=== PATIENT | female | born 1960 | race Caucasian/White ===

== ENCOUNTER → 2018-11-10 | Outpatient (CLI) | payer OTHER ==
[~2018-11-10] VITALS: Ht 162.6 cm; Wt 81.6 kg
[~2018-11-10] MED LIST: CYCLOBENZAPRINE5 MG PO; GABAPENTIN 100100 MG PO
[2018-11-10 09:45] VITALS: BP 111/76
--- NOTE | 2018-11-10 10:03 | NUR ---
Pain Clinic Assessment: 1. History of Osteoarthritis: DENIES History of Rheumatoid Arthritis: DENIES 2. Height: 5 ft. 4 in. 162.6 cm. Weight: 180.0 lb. oz. 81.648 kg. Patient's BMI: 30.9 3. Vital Signs: BP: 111/76 Pulse: 75 Resp: 16 Temp: 02 Sat: 98 ECG Mon: 4. Pain Intensity: 8 5. Fall Risk: Dizziness: N Needs help standing or walking: N Fallen in the last 3 months: N Fall risk comments: 6. Patient on Blood Thinner: None 7. History of Hypertension: N 8. Opioid Therapy greater than 6 weeks: N Opiate Contract Signed: 9. Risk Assessment Tool Provided: 10. Functional Assessment Tool: 11. Recreational Drug Use: Never Drug Type: Tobacco Use: Current Every Day Smoker Tobacco Type: Cigarettes Amount or Packs/day: 0.5 How Many Years: 14 Alcohol Use: Yes Frequency: Weekly Quant: 2-3 A WEEK
--- NOTE | 2018-11-16 13:03 | HPC ---
[facility] [place] [address] PAIN MANAGEMENT CONSULTATION Name: BRANT BYRNES Room #: REG Malik MSuhail.#: [id number] Admission: 11/10/18 ������������������ Attend Phys: Bryce Beltran DO Discharge: ������������������ Date of : 64 Report #: [id number] THIS REPORT FOR: //name// CC: FAM physician/PCP Bryce Grey NP DATE OF SERVICE: 11/10/2018 REFERRING PHYSICIAN: Nurse oYandy Dior CHIEF COMPLAINT: Low back pain and bilateral lower extremity pain with paresthesias. HISTORY OF PRESENT ILLNESS: As you know, the patient is a 58-year-old female with long-standing history of low back pain, upper buttock and posterolateral thigh pain that began in 2018. The patient denies specific injury or trauma that may have led to symptom development. She states that her job tends to exacerbate symptoms as she is doing lifting and twisting throughout her daily activities. She has trialed conservative treatment options with [id number] medications, stretching and relaxation techniques, all of which unfortunately have been ineffective at improving the symptoms. She sought evaluation at her local physician's office, seeing nurse practitioner Garima Grey, who then referred the patient for MRI of the lumbar spine for further evaluation. The patient underwent MRI of the lumbar spine on 11/05/2018 and was then referred to our clinic to discuss potential treatment options as there were minimal findings in the imaging study. The patient indicates today pain is continuous and constant, describes pain as cramping, aching and throbbing; places current pain score at 8/10, daily average of 6-7/10, worst the pain has been is 10+/10. The patient states that pain is exacerbated with working for long periods of time, getting up out of a chair and sitting for any length of time; improves with sleep. She has been referred to our service to discuss options for treatment for what appears to be a combination of facet arthropathy and myofascial pain. There does appear to be a history of radicular component, with radiation down the legs bilaterally, correlating to the L5-S1 level. She has been referred to our service to discuss treatment options for ongoing pain issues. PAST MEDICAL HISTORY: Gallbladder disease. PAST SURGICAL HISTORY: Cholecystectomy. SOCIAL HISTORY: The patient continues to smoke, reporting less than a half pack tobacco per day, has done so since age 16. She admits to one alcoholic beverage per day. She is employed as a production line mechanic. [place], [place] [id number] PAIN MANAGEMENT CONSULTATION Name: BRANT BYRNES Room #: REG CLMalik Isi.#: [id number] Admission: 11/10/18 ������������������ Attend Phys: Bryce Beltran DO Discharge: ������������������ Date of : 64 Report #: [id number] workmen's compensation nor is she trying to obtain disability benefits. She is not in litigation in regards to pain. She is accompanied by her significant other present in the room today. REVIEW OF SYSTEMS: Positive for frequent fatigue and weakness, frequent and recurrent headaches, blurred and double vision, changes in bowel movements, frequent diarrhea, nocturia, incontinence or dribbling to urine, varicose veins, numbness and tingling sensations, nervousness or depression. All other review of systems negative per 12-point review of systems, other than those listed in the history of present illness. Pain impact score 41/60, indicating severe interference with daily activities secondary to pain. ALLERGIES: MORPHINE AND MARIJUANA. CURRENT MEDICATIONS: Cyclobenzaprine 5 mg 3 times a day and gabapentin 100 mg 3 times a day. IMAGING DATA: MRI of the lumbar spine obtained 11/05/2018 shows at T12-L1 minimal broad-based disk bulge, typical finding for age-related patient. There is mild right and mild left facet arthropathy. No significant central canal or neural foraminal stenosis. L1-L2, small right paracentral disk bulge, slight impression upon the right ventral thecal sac. No significant central canal or neural foraminal stenosis. There are noted arthritic changes at this level. L2-L3, minimal disk bulge, mild facet and ligamentum flavum changes. No significant central canal or neural foraminal stenosis. L3-L4, small broad-based disk bulge, slightly impinging upon the ventral thecal sac. There are some arthritic changes noted. There are no significant central canal or neural foraminal stenosis. L4-L5, small broad-based disk bulge; mild ligamentum flavum hypertrophy; mild arthritic changes; mild relative narrowing of the thecal sac to 10.5 mm, down from 12 mm and mild inferior foraminal tapering bilaterally. L5-S1, severe degenerative changes; prominent ligamentum flavum hypertrophy, right greater than left; moderate bilateral neural foraminal narrowing secondary to spondylolisthesis and advanced facet arthropathy changes. No significant central canal stenosis. PHYSICAL EXAMINATION: VITAL SIGNS: Blood pressure 111/76, pulse 75 and respiratory rate 16 and unlabored. The patient is 98% on room air. Height 5 feet 4 inches tall, weight 180 pounds, BMI calculated 30.9. GENERAL: Well-developed, well-nourished and well-hydrated 58-year-old female, appears older than stated age. She smells strongly of tobacco smoke, placing current pain score at 8/10. HEENT: Normocephalic, atraumatic. Pupils equal, round and reactive to light. Extraocular muscles are intact. Sclerae nonicteric, without injection. [facility] [address] [place] [address] PAIN MANAGEMENT CONSULTATION Name: BRANT BYRNES Room #: REG ALMA Snowden.#: [id number] Admission: 11/10/18 ������������������ Attend Phys: Bryce Beltran DO Discharge: ������������������ Date of : 64 Report #: [id number] NEUROLOGIC: Cranial nerves 2-12 grossly intact. Speech is fluent. The patient deemed a fair historian. LUNGS: Appear clear. No wheezes, rhonchi or rales. CARDIOVASCULAR: Regular. No appreciable gallop or rub. ABDOMEN: Soft, obese. Normoactive bowel sounds. EXTREMITIES: Show no clubbing, no cyanosis and no edema. MUSCULOSKELETAL: Lower extremity strength equal and symmetrical, 5/5. She is intact to light touch from L1 through S2 dermatomes. Seated straight leg raising negative. Supine straight leg raising is equivocal. Lumbar provocation testing is met with increasing pain with axial distribution. There is tenderness to palpation over the paraspinal musculature of the lower lumbar spine. No spinous process tenderness. Modified Gaenslen's is positive for axial back pain. Poncho's test is negative. Ankle clonus negative. Babinski is negative. Gait appears normal. The patient does have a slightly forward flexed lumbar spine, with loss of lordotic curvature. ASSESSMENT: 1. History of lumbar radiculopathy. 2. Mild displacement of lumbar intervertebral disks. 3. Facet arthropathy of the lumbar spine. 4. Lumbosacral spondylosis with radicular symptoms. 5. Myofascial pain. 6. Chronic low back pain. PLAN: 1. Based on today's physical exam, history the patient has provided, the description the patient uses in regards to pain as well as the distribution of symptoms that periodically radiate down the leg, the likely source of the patient's symptoms from this area is a lumbar radiculopathy related to the L5-S1 level and the neural foraminal stenosis noted due to severe facet arthropathy changes. This is in conjunction with the axial back pain that is presented with Modified Gaenslen's testing and provocation testing of the lumbar spine, which would indicate some facet arthropathy pain. We discussed the treatment options as follows. We discussed physical therapy, stretching exercises and core strengthening as the goal standard treatment for both lumbar radiculopathy and the facet arthropathy issues. This would be highly recommended in this patient's case as the majority of her pain currently appears to be related to the axial spine and the facets themselves. She has periodic paresthesias in the legs that are more related to the neural foraminal stenosis noted at the L5-S1 level, but this is less frequent than the axial back pain issues. We discussed suggestions for medication management, utilizing nonsteroidal anti-inflammatories on a consistent basis for the axial back issues; this in conjunction with the aforementioned physical therapy. We also discussed the addition of neuropathic pain medications to assist in the neuropathy generator from the [address] [address] PAIN MANAGEMENT CONSULTATION Name: BRANT BYRNES Room #: TEREZA Feldman#: [id number] Admission: 11/10/18 ������������������ Attend Phys: Bryce Beltran DO Discharge: ������������������ Date of : 64 Report #: [id number] foraminal stenosis issues that occurs periodically. These could be either nortriptyline, amitriptyline, gabapentin, Cymbalta or similar agents, even potentially Lyrica. We discussed injection therapies with the patient today, for which she was referred to our clinic. We discussed an epidural injection to address lumbar radicular symptoms from the L5-S1 level. We also discussed intra-articular facet injections, medial branch nerve blocks and radiofrequency lesioning to address her axial back pain issues. We would recommend the medial branch nerve blocks and radiofrequency lesioning only after the patient has completed 6 weeks of physical therapy. This may not be necessary and ablating nerves that do not necessarily need to be ablated is not our first choice of treatment. Certainly, epidural injections could be provided to address the lumbar radicular component so that the patient can participate more in our physical therapy to address her axial back pain. We also discussed surgical options ultimately. After reviewing risks and benefits of all proposed treatment options, the patient chose to move forward with a possible lumbar epidural injection. 2. The patient was advised that third green party payer restrictions require that authorization be obtained before the patient can undergo an epidural injection. Epidural injection prior authorization will take anywhere from 4-7 working days. We will begin this process immediately. We are planning tentatively to have the patient return next Thursday as she has Thursday, and Thursday off, to be able to recover from the procedure. It just so happens that the patient does have Wednesdays, and Fridays off work as part of her traditional working schedule. This would work optimally for the patient to undergo the procedure at that time. 3. We made no adjustments in medication management at this visit, though we would recommend the above suggested medications being initiated by the PCP if they wish to do so. Certainly, we would like to see how injections would work prior to having to start all those medications. 4. We will see the patient back in followup visit once we have the authorization obtained. We will keep you apprised of the patient's response to this treatment and any other adjustments in therapy deemed necessary. Again, we wish to thank you for the opportunity to see this patient in consultation. ��������������������������������������������� <ELECTRONICALLY SIGNED> ���������������������������������������� By: Bryce Beltran DO ��������������������������������������������� 11/16/18 1303 [id number] Bryce Beltran DO /nt
== END ==
LOC: PAIN 07:50
DX: M51.16 Intervertebral disc disorders with radiculopathy, lumbar region (principal); M47.26 Other spondylosis with radiculopathy, lumbar region; G89.29 Other chronic pain; F17.210 Nicotine dependence, cigarettes, uncomplicated; Z90.49 Acquired absence of other specified parts of digestive tract; Z72.89 Other problems related to lifestyle; Z79.899 Other long term (current) drug therapy; Z88.5 Allergy status to narcotic agent; Z88.8 Allergy status to other drugs, medicaments and biological substances